=== PATIENT | female | born 1985 | race Caucasian/White ===

== ENCOUNTER 2018-02-16 06:22 | Inpatient (IN) | payer MEDICAID, OTHER ==
[2018-02-16] MEDS ORDERED: ENOXAPARIN SODIUM 40 MG/0.4 ML DISP.SYRIN SQ ONE (08:33)
[2018-02-16] MEDS ORDERED: SCOPOLAMINE HYDROBROMIDE 1.5MG/72HR PATCH TD ONE ×2 (08:33→08:48)
[2018-02-16] MEDS ORDERED: FAMOTIDINE 20 MG/2 ML VIAL ONE ×2 (08:34→08:48)
[2018-02-16] MEDS ORDERED: LACTATED RINGERS 1,000 ML IV ONE (08:34)
[2018-02-16] MEDS ORDERED: DEXAMETHASONE SOD PHOS 4 MG/ML VIAL ONE (08:48)
[2018-02-16] MEDS ORDERED: diphenhydrAMINE HCL 50 MG/ML VIAL ONE ×2 (08:48→11:51)
[2018-02-16] MEDS ORDERED: BUPIV. HCL 0.25% (2.5MG/ML)/EPI. (1:200,000) PF 30 ML VIAL IJ ONE (08:48)
[2018-02-16] MEDS ORDERED: KETOROLAC TROMETHAMINE 30 MG/1ML VIAL ONE (08:48)
[2018-02-16] MEDS ORDERED: LACTATED RINGERS 1,000 ML IV.SOLN IV ONE (08:48)
[2018-02-16] MEDS ORDERED: SODIUM CHLORIDE IRRIG SOLUTION 3,000 ML IRRIG.SOLN IR ONE (08:48)
[2018-02-16] MEDS ORDERED: PHENYLEPHRINE HCL 10 MG/1 ML ONE (08:48)
[2018-02-16] MEDS ORDERED: SUGAMMADEX SODIUM 200 MG/2 ML VIAL IV ONE (08:48)
[2018-02-16] MEDS ORDERED: LIDOCAINE HCL 2% PF 100MG/5ML VIAL IJ ONE (08:48)
[2018-02-16] MEDS ORDERED: fentaNYL CITRATE/PF 100 MCG/2 ML INJ. ONE (08:48)
[2018-02-16] MEDS ORDERED: PROPOFOL 200 MG/20 ML VIAL IV ONE (08:48)
[2018-02-16] MEDS ORDERED: ROCURONIUM BROMIDE 10 MG/ML 5ML VIAL ONE (08:48)
[2018-02-16] MEDS ORDERED: SEVOFLURANE 250 ML LIQUID IH ONE (08:48)
[2018-02-16] MEDS ORDERED: ceFAZolin SODIUM 1 GM VIAL ONE (08:48)
[2018-02-16] MEDS ORDERED: ONDANSETRON HCL/PF 4 MG/ 2ML VIAL ONE (08:48)
[2018-02-16] MEDS ORDERED: ACETAMINOPHEN 1,000 MG/100 ML INJ IV ONE (08:48)
[2018-02-16] MEDS ORDERED: PROMETHAZINE HCL 25 MG/ML VIAL ONE ×3 (08:48→15:27)
[2018-02-16] MEDS ORDERED: FENTANYL CITRATE/PF 250 MCG/5 ML INJ. ONE (10:24)
[2018-02-16] MEDS ORDERED: MIDAZOLAM HCL 2 MG/2 ML VIAL ONE (10:24)
[2018-02-16] MEDS ORDERED: HYDROmorphone HCL/PF 2 MG/ML VIAL ONE (11:28)
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
[2018-02-16] MEDS ORDERED: MORPHINE SULFATE 10 MG/ML VIAL IVP PRN (12:48)
[2018-02-16] MEDS ORDERED: LEVALBUTEROL HCL 1.25 MG/3 ML AMPUL.NEB NEB PRN (12:48)
[2018-02-16] MEDS: 0.9 % SODIUM CHLORIDE 1,000 ML IV SCH ×2 (13:43→21:32)
[2018-02-16] MEDS: ONDANSETRON HCL/PF 4 MG/ 2ML VIAL IVP PRN ×2 (13:44→21:23)
[2018-02-16] MEDS: KETOROLAC TROMETHAMINE 30 MG/1ML VIAL IVP PRN (13:47)
[2018-02-16] MEDS: GABAPENTIN 300 MG CAPSULE PO SCH (14:05)
[2018-02-16] MEDS ORDERED: 0.9 % SODIUM CHLORIDE 50 ML IV ONE (15:28)
[2018-02-16] MEDS: PROMETHAZINE HCL 25 MG in 0.9 % SODIUM CHLORIDE 50 ML IV PRN (15:30)
[2018-02-16 16:47] VITALS: BMI 53.7
[2018-02-16] MEDS: HYDROcodone /APAP 10/325 1 EACH TABLET PO PRN (17:10)
[2018-02-16] MEDS: CEFAZOLIN SODIUM/DEXTROSE,ISO 1 GM/50 ML PIGGYBACK IV SCH (17:10)
[2018-02-16] MEDS: FAMOTIDINE 20 MG/2 ML VIAL IVP SCH (21:34)
[2018-02-17] MEDS ORDERED: PROMETHAZINE HCL 25 MG/ML VIAL ONE ×2 (00:12→21:49)
[2018-02-17] MEDS ORDERED: 0.9 % SODIUM CHLORIDE 50 ML IV ONE (00:14)
[2018-02-17] MEDS: PROMETHAZINE HCL 25 MG in 0.9 % SODIUM CHLORIDE 50 ML IV PRN (00:19)
[2018-02-17] MEDS: CEFAZOLIN SODIUM/DEXTROSE,ISO 1 GM/50 ML PIGGYBACK IV SCH (00:56)
[2018-02-17] MEDS: GABAPENTIN 300 MG CAPSULE PO SCH ×2 (00:57→13:17)
[2018-02-17] MEDS: ONDANSETRON HCL/PF 4 MG/ 2ML VIAL IVP PRN ×2 (03:07→13:38)
[2018-02-17] MEDS: 0.9 % SODIUM CHLORIDE 1,000 ML IV SCH ×3 (04:56→18:58)
[2018-02-17] MEDS: KETOROLAC TROMETHAMINE 30 MG/1ML VIAL IVP PRN (05:04)
[2018-02-17] MEDS ORDERED: HYDROmorphone HCL/PF 1 MG/ML VIAL IVP PRN (07:24)
--- NOTE | 2018-02-17 07:27 | Inpatient Progress Note ---
Subjective - Required Recertification Statement I anticipate X number of days because-include discharge plan: 1 - Review of Systems Subjective: Patient having more gas and nausea. Walking ok. Objective - Exam Vitals and I&O: Vital Signs Temp 97.4 F L 02/17/18 06:00 Pulse 84 02/17/18 06:00 Resp 20 02/17/18 06:00 BP 159/88 02/17/18 06:00 Pulse Ox 97 02/17/18 06:00 Intake & Output 02/16/18 02/16/18 02/17/18 11:59 23:59 11:59 Intake Total 960 1200 Output Total 500 200 Balance 460 1000 Weight 165.108 kg Intake: IV 750 1200 Left Forearm 750 1200 Oral 210 0 Output: Urine 500 200 Other: Voiding Method Toilet Toilet # Voids 2 General: Alert, Oriented to Person, Oriented to Place, Oriented to Time, Cooperative, No acute distress Lungs: Clear to auscultation, Normal air movement, Speaks full Sentences Cardiovascular: Regular rate Abdomen: Normal bowel sounds, Soft. No: No tenderness (Bandages C/D/I) Assessment/Plan - Assessment/Plan (1) Hypertension Status: Acute Current Visit: Yes Qualifiers: Hypertension type: essential hypertension Qualified Code(s): I10 - Essential (primary) hypertension Plan: Add lisinopril 10 mg per home dosing back to regimen. (2) Pre-diabetes Status: Acute Current Visit: Yes Plan: BS 103-130. Continue to watch off meds. (3) S/P gastric surgery Status: Acute Current Visit: Yes Narrative Support Text: Phenergan/zofran prn. Add maalox. Dilaudid due to morphine shortage.
[2018-02-17] MEDS ORDERED: MAG HYDROX/ALUMINUM HYD/SIMETH 30 ML UDC PO ONE (08:52)
[2018-02-17] MEDS: MAGNESIUM, ALUMINUM HYDROXIDE 30 ML UDC PO PRN (09:21)
[2018-02-17] MEDS: LISINOPRIL 5 MG TABLET PO SCH (09:23)
[2018-02-17] MEDS: FAMOTIDINE 20 MG/2 ML VIAL IVP SCH ×2 (09:29→21:13)
[2018-02-17] MEDS ORDERED: MORPHINE SULFATE 5 MG/ML ML IV PRN (12:50)
[2018-02-17] MEDS: ENOXAPARIN SODIUM 40 MG/0.4 ML DISP.SYRIN SQ SCH (13:15)
[2018-02-17] MEDS ORDERED: 0.9 % SODIUM CHLORIDE 100 ML IV ONE (21:50)
[2018-02-18] MEDS: GABAPENTIN 300 MG CAPSULE PO SCH ×2 (00:28→13:59)
[2018-02-18] MEDS: 0.9 % SODIUM CHLORIDE 1,000 ML IV SCH ×3 (02:02→14:02)
[2018-02-18] MEDS: MAGNESIUM, ALUMINUM HYDROXIDE 30 ML UDC PO PRN ×2 (06:34→15:03)
[2018-02-18] MEDS: LISINOPRIL 5 MG TABLET PO SCH (08:41)
[2018-02-18] MEDS: FAMOTIDINE 20 MG/2 ML VIAL IVP SCH (08:53)
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
[2018-02-18 13:35] VITALS: BP 125/71
[2018-02-18] MEDS: ENOXAPARIN SODIUM 40 MG/0.4 ML DISP.SYRIN SQ SCH (13:59)
[2018-02-18] MEDS: HYDROcodone /APAP 10/325 1 EACH TABLET PO PRN (15:19)
== END 2018-02-18 15:30 | disposition home or self-care (01) | DRG 621 ==
LOC: SOUTH 06:22 → UNDOADMIN 12:38 → UNDODISIN 02-18 15:30
PROVIDERS: ADMIT Nurse Practitioner Family; ATTEND Nurse Practitioner Family
DX: E66.01 Morbid (severe) obesity due to excess calories (principal); Z68.43 Body mass index [BMI] 50.0-59.9, adult; I10 Essential (primary) hypertension; K21.9 Gastro-esophageal reflux disease without esophagitis; R73.09 Other abnormal glucose; M54.5 Low back pain; F32.9 Major depressive disorder, single episode, unspecified; Z32.02 Encounter for pregnancy test, result negative
CPT/HCPCS: 43235; 81025; 99231; 99238; J0690; J1100; J1170; J1200; J1650; J1885; J2001; J2250; J2307; J2405; J2550; J2704; J3010; 43775; A9270-GY; J2370; J7030; J7120